=== PATIENT | female | born 1990 | race Caucasian/White ===

== ENCOUNTER 2017-06-30 16:25 | Inpatient (IN) | payer OTHER ==
[2017-06-30] MEDS ORDERED: LR 1,000 ML IV (19:20)
[2017-06-30] MEDS: LR 1,000 ML IV (19:20)
[2017-06-30] MEDS: OXYTOCIN DRIP 30 UNITS in APPROPRIATE DILUENT 1 EA IV (20:13)
[2017-06-30 20:27] LABS: HEMATOCRIT 35.8 % (36.0-47.0); HEMOGLOBIN 12.4 g/dl (12.0-16.0); MEAN CORPUSCULAR HEMOGLOBIN 31.5 pg (27.0-33.0); MEAN CORPUSCULAR HGB CONC 34.6 g/dl (32.0-36.5); MEAN CORPUSCULAR VOLUME 90.9 fl (80.0-96.0); PLATELET COUNT, AUTOMATED 200 10^3/uL (150-450); RED BLOOD COUNT 3.94 10^6/uL (4.00-5.40); RED CELL DISTRIBUTION WIDTH 13.2 % (11.5-14.5); WHITE BLOOD COUNT 11.4 10^3/uL (4.0-10.0)
[2017-06-30 20:48] LABS: AMPHETAMINES URINE REFLEX NEGATIVE (NEGATIVE); BARBITURATES URINE REFLEX NEGATIVE (NEGATIVE); BENZODIAZEPINES URINE REFLEX NEGATIVE (NEGATIVE); CANNABINOIDS URINE REFLEX NEGATIVE (NEGATIVE); COCAINE METABOLITE URINE REFLE NEGATIVE (NEGATIVE); METHADONE URINE REFLEX NEGATIVE (NEGATIVE); OPIATES URINE REFLEX NEGATIVE (NEGATIVE); PHENCYCLIDINE URINE REFLEX NEGATIVE (NEGATIVE)
[2017-06-30] MEDS: LABETALOL 200 MG TAB PO (21:41)
[2017-06-30] MEDS ORDERED: FENTANYL 2MCG/ML ROPIVACAINE 0.2% IN 0.9% NACL 200ML IVBAG As Ordered (22:04)
[2017-06-30] MEDS: FENTANYL/ROPIVACAINE/NACL BAG 200 ML EPIDURAL (23:15)
[2017-06-30] MEDS ORDERED: EPIDURAL COMMENT XX (23:15)
[2017-06-30] MEDS ORDERED: ePHEDrine INJ 50 MG/ML VIAL IV (23:15)
[2017-06-30] MEDS ORDERED: NALOXONE INJ 0.4 MG/1 ML VIAL (J2310) IV (23:15)
[2017-06-30] MEDS ORDERED: LACTATED RINGER'S 1000 ML IV (23:15)
[2017-06-30] MEDS ORDERED: REFRIGERATOR IV KEYS XX (23:15)
[2017-06-30] MEDS ORDERED: EPIDURAL/PCA KEYS XX (23:15)
[2017-06-30] MEDS: LACTATED RINGER'S 1000 ML IV (23:26)
[2017-07-01] MEDS: diphenhydrAMINE INJ 50MG/ML VIAL (J1200) IV ×2 (02:45→02:52)
[2017-07-01] MEDS: ONDANSETRON 4MG/2ML VIAL (J2405) IV ×2 (02:46→02:53)
[2017-07-01] MEDS: LR 1,000 ML IV (07:36)
[2017-07-01] MEDS: LABETALOL 200 MG TAB PO ×2 (10:02→20:37)
[2017-07-01] MEDS: valACYclovir HCL 500 MG TAB PO (10:02)
[2017-07-01 15:02] LABS: CORD GAS ABE V -5.8; CORD GAS PCO2 V 40.4 mmHg; CORD GAS PH V 7.313 UNITS; CORD GAS PO2 V 36.4 mmHg; CORD GAS SBC V 19.4 MEQ/L; CORD GAS TCO2 V 21.3 MEQ/L
[2017-07-01] MEDS ORDERED: METHYLERGONOVINE MALEATE 0.2 MG TAB PO (15:30)
[2017-07-01] MEDS ORDERED: ANUSOL HC CREAM 30GM TOP (15:30)
[2017-07-01] MEDS ORDERED: MOM 30ML SUSPENSION UDC PO (15:30)
[2017-07-01] MEDS ORDERED: DIBUCAINE 1% OINTMENT 30GM TOP (15:30)
[2017-07-01] MEDS ORDERED: FIORICET TAB PO (15:45)
[2017-07-01] MEDS: ACETAMINOPHEN 500 MG TAB PO (15:46)
[2017-07-01] MEDS: IBUPROFEN 800 MG TAB PO (17:19)
[2017-07-02] MEDS: IBUPROFEN 800 MG TAB PO ×3 (04:20→23:35)
[2017-07-02 06:39] LABS: HEMATOCRIT 30.6 % (36.0-47.0); MEAN CORPUSCULAR HEMOGLOBIN 31.2 pg (27.0-33.0); MEAN CORPUSCULAR HGB CONC 33.7 g/dl (32.0-36.5); MEAN CORPUSCULAR VOLUME 92.7 fl (80.0-96.0); PLATELET COUNT, AUTOMATED 143 10^3/uL (150-450); RED CELL DISTRIBUTION WIDTH 13.6 % (11.5-14.5); WHITE BLOOD COUNT 15.4 10^3/uL (4.0-10.0)
[2017-07-02 06:48] LABS: HEMOGLOBIN 10.3 g/dl (12.0-16.0)
[2017-07-02] MEDS: PRENATAL VITAMINS CHEWABLE TABLET PO (08:54)
[2017-07-02] MEDS: LABETALOL 200 MG TAB PO ×2 (08:54→20:06)
[2017-07-02] MEDS: ACETAMINOPHEN 500 MG TAB PO (11:29)
[2017-07-02] MEDS: MEASLES,MUMPS,RUBELLA VACCINE INJ (MMR-II) (90707) SC (19:27)
[2017-07-02] MEDS: RHOGAM 300 MCG (1500 IU) INJ (J2790) IM (19:27)
[2017-07-02] MEDS: DOCUSATE SODIUM 100 MG CAP PO (20:08)
[2017-07-03] MEDS: PRENATAL VITAMINS CHEWABLE TABLET PO (08:04)
[2017-07-03] MEDS: IBUPROFEN 800 MG TAB PO (08:04)
[2017-07-03] MEDS: LABETALOL 200 MG TAB PO (08:06)
== END 2017-07-03 11:10 | disposition home or self-care (01) | DRG 774 ==
LOC: M LDO 16:25 → M LDI 18:52 → M OBS 07-01 16:30
PROVIDERS: Obstetrics & Gynecology
PROC: 3E033VJ Introduction of Other Hormone into Peripheral Vein, Percutaneous Approach (ICD-10-PCS; 2017-06-30)
PROC: 10D07Z6 Extraction of Products of Conception, Vacuum, Via Natural or Artificial Opening (ICD-10-PCS; principal; 2017-07-01)
PROC: 0HQ9XZZ Repair Perineum Skin, External Approach (ICD-10-PCS; 2017-07-01)
DX: O11.4 Pre-existing hypertension with pre-eclampsia, complicating childbirth (principal); O10.02 Pre-existing essential hypertension complicating childbirth; Z37.0 Single live birth; Z3A.39 39 weeks gestation of pregnancy; Z88.0 Allergy status to penicillin; Z91.018 Allergy to other foods; Z79.899 Other long term (current) drug therapy; O75.81 Maternal exhaustion complicating labor and delivery; O70.0 First degree perineal laceration during delivery